=== PATIENT | female | born 1990 | race Hispanic/Latino ===

== ENCOUNTER → 2023-08-15 | Outpatient (CLI) | payer OTHER | END | disposition home or self-care (01) | LOC: RAH 14:57 | PROVIDERS: ATTEND Internal Medicine Cardiovascular Disease | DX: Z13.6 Encounter for screening for cardiovascular disorders (principal) | CPT/HCPCS: 75571 ==

== ENCOUNTER 2023-09-07 16:00 | Inpatient (IN) | payer OTHER ==
[~2023-09-07] VITALS: Ht 160 cm; Wt 87.7 kg
[2023-09-07 15:09] VITALS: BP 112/64; PULSE 74; RESP 15
[2023-09-07 15:14] LABS: BASOPHILS # (AUTO) 0.03 K/uL (0.00-0.20); BASOPHILS % (AUTO) 0.4 % (0.0-5.0); EOSINOPHILS # (AUTO) 0.05 K/uL (0.00-0.70); EOSINOPHILS % (AUTO) 0.6 % (0.0-8.0); HEMATOCRIT 42.3 % (36-48); IMMATURE GRANULOCYTE ABSOLUTE 0.03 K/uL (0-1); LYMPHOCYTES # (AUTO) 1.3 K/uL (1.0-4.8); LYMPHOCYTES % (AUTO) 15.7 % (21.0-51.0); MEAN CORPUSCULAR HGB CONC 32.4 g/dL (32.0-36.0); MEAN CORPUSCULAR VOLUME 86.5 fL (79-99); MONOCYTES # (AUTO) 0.6 K/uL (0.1-1.0); MONOCYTES % (AUTO) 7.1 % (3.0-13.0); NEUTROPHILS # (AUTO) 6.5 K/uL (1.8-7.7); NEUTROPHILS % (AUTO) 75.8 % (40.0-77.0); PLATELET COUNT (AUTO) 239 K/uL (130-400); RED BLOOD CELL COUNT(AUTO) 4.89 MIL/uL (4.00-5.50); RED CELL DISTRIBUTION WIDTH 12.9 % (11.0-15.5); WHITE BLOOD COUNT (AUTO) 8.5 K/uL (4.8-10.8)
[2023-09-07 15:23] LABS: CREATININE 0.9 mg/dL (0.5-1.5); POTASSIUM 4.1 mmol/L (3.5-5.1)
[~2023-09-07 16:00] MED LIST: ERGO500093 PO; LEVO25TA54 PO
[2023-09-12] VITALS (29 sets, daily range): BP systolic 105–120; BP diastolic 58–77; PULSE 69–111; RESP 12–21; O2SAT 98
[2023-09-12] MEDS ORDERED: CEFAZOLIN SODIUM 1 GM VIAL IVPB PRN (06:00)
[2023-09-12] MEDS: LACTATED RINGERS 1000ML 1,000 ML IV ONE ×2 (08:27→14:30)
[2023-09-12] MEDS: CEFAZOLIN SODIUM 2 GM VIAL ONE (08:27)
[2023-09-12] MEDS: METRONIDAZOLE 500MG/100ML BAG 200 ML ONE (08:27)
[2023-09-12] MEDS ORDERED: LIDOCAINE PF 100MG/5ML (2%) SYRINGE 5ML ONE (10:20)
[2023-09-12] MEDS ORDERED: ROCURONIUM BROMIDE 10MG/1ML 5ML VL ONE ×2 (10:20→12:26)
[2023-09-12] MEDS ORDERED: PROPOFOL 10 MG/ML 20ML VIAL IV ONE (10:20)
[2023-09-12] MEDS ORDERED: ONDANSETRON 4MG INJ ONE (10:20)
[2023-09-12] MEDS ORDERED: DEXAMETHASONE SOD PHOSPHATE 10MG/ML 1ML VIAL ONE (10:20)
[2023-09-12] MEDS ORDERED: MIDAZOLAM HCL 1 MG/ML 2ML VIAL ONE (10:20)
[2023-09-12] MEDS ORDERED: KETOROLAC 30MG VIAL (30MG/ML) ONE (10:21)
[2023-09-12] MEDS ORDERED: FENTANYL CITRATE PF 50 MCG/1 ML 2ML VIAL ONE ×2 (10:21→12:26)
[2023-09-12] MEDS ORDERED: KETAMINE 50MG/ML SYRINGE 50 MG/ML DISP.SYRIN ONE (10:26)
[2023-09-12] MEDS: CEFAZOLIN SODIUM 2 GM VIAL IVPB PRN (12:15)
[2023-09-12] MEDS: BUPIVACAINE/PF 0.25% 30ML VIAL IJ ONE (12:30)
[2023-09-12] MEDS ORDERED: ROPIVACAINE 0.5% 5MG/ML 30ML ONE (12:45)
[2023-09-12] MEDS ORDERED: NEOSTIGMINE METHYLSULFATE 1MG/ML IV ONE (13:54)
[2023-09-12] MEDS ORDERED: GLYCOPYRROLATE 0.2 MG/ML 5 ML VIAL ONE (13:54)
[2023-09-12] MEDS ORDERED: HYDROCODONE/ACETAMINOPHEN 7.5/325 MG 15 ML UDCUP PO PRN (14:30)
[2023-09-12] MEDS: LACTATED RINGERS 1000ML 1,000 ML IV SCH (14:32)
[2023-09-12] MEDS: ONDANSETRON 4MG INJ IVP PRN (15:01)
[2023-09-12] MEDS: MEPERIDINE-PF 25 MG/ML SYG ONE (15:06)
[2023-09-12] MEDS: METOCLOPRAMIDE 10 MG/2 ML VIAL ONE (15:10)
[2023-09-12] MEDS: ONDANSETRON 4MG INJ ONE (16:51)
[2023-09-12] MEDS: MORPHINE 4 MG SYG IVP PRN (16:55)
[2023-09-12] MEDS: KETOROLAC 30MG VIAL (30MG/ML) IV PRN (20:09)
[2023-09-12] MEDS: PROCHLORPERAZINE 10MG/2ML INJ IV PRN (23:00)
[2023-09-13 04:34] VITALS: BP 101/57; PULSE 66; RESP 18
[2023-09-13] MEDS: LEVOTHYROXINE 25 MCG TABLET PO SCH (05:40)
[2023-09-13 07:44] VITALS: BP 95/53; PULSE 68; RESP 14
[2023-09-13 08:00] VITALS: O2SAT 100
[2023-09-13] MEDS: ENOXAPARIN SODIUM 40 MG/0.4 ML SYRINGE SQ SCH (08:20)
[2023-09-13 12:00] VITALS: BP 98/65; PULSE 69; RESP 15
[2023-09-13 16:00] VITALS: BP 109/61; PULSE 65; RESP 15
== END 2023-09-13 16:30 | disposition home or self-care (01) | DRG 621 ==
LOC: DAHIP 09-12 07:55 → 4DH 09-12 16:50
PROVIDERS: ADMIT Surgery; ATTEND Surgery
PROC: 0DB64Z3 Excision of Stomach, Percutaneous Endoscopic Approach, Vertical (ICD-10-PCS; 2023-09-12)
PROC: 0DJ08ZZ Inspection of Upper Intestinal Tract, Via Natural or Artificial Opening Endoscopic (ICD-10-PCS; principal; 2023-09-12 11:30)
DX: E66.01 Morbid (severe) obesity due to excess calories (principal); E03.9 Hypothyroidism, unspecified; F41.9 Anxiety disorder, unspecified; F32.A Depression, unspecified; Z68.34 Body mass index [BMI] 34.0-34.9, adult
CPT/HCPCS: 36415; 43235; 80048; 85025; 86850; 86900; 86901; 93005; G0378; J0780; J1100; J1650; J1885; J2001; J2175; J2250; J2270; J2405; J2704; J2710; J2765; J2795; J3010; J3490; J7120; A4215; A4221; A4222; A4223; A4600; A4663; A6260; J0665; J0690